=== PATIENT | male | born 1975 | race Caucasian/White ===

== ENCOUNTER → 2016-05-15 | Outpatient (CLI) | payer BC ==
[~2016-05-15] MED LIST: LORA10TA5 PO
--- NOTE | 2016-05-15 10:54 | DIAGNOSTIC IMAGING REPORT ---
ULTRASOUND ABDOMEN COMPLETE CLINICAL HISTORY: Elevated hepatic transaminases. COMPARISON STUDY: Abdominal CT dated 11/16/2012. TECHNIQUE: Real-time, grayscale, and color flow sonography of the abdomen was performed. Images are reviewed in the transverse and longitudinal planes. FINDINGS: Liver: The liver is normal in size and echotexture. There is no intrahepatic biliary ductal dilatation. The main portal vein is patent. Gallbladder: The gallbladder is normal in appearance. No gallstones are identified. There is no gallbladder wall thickening or pericholecystic fluid. A sonographic Tejada's sign is reportedly absent. The common bile duct measures up to 0.4 cm in diameter. Pancreas: Visualized portions of the pancreatic head and body are normal in appearance. The splenic vein is patent. Spleen: The spleen is normal in size and echotexture, measuring 11.3 cm in length. Kidneys: The kidneys are normal in size and echotexture. There is no hydronephrosis. The right kidney measures 12.2 cm in length and the left kidney measures 11.1 cm in length. No shadowing calculi are identified. Abdominal vasculature: Visualized portions of the abdominal aorta are normal in caliber. Ascites: None. IMPRESSION: Unremarkable sonographic assessment of the abdomen. Electronically signed by: Delvis Raymond M.D. 05/15/2016 10:52 AM Dictated Date/Time: 05/15/2016 10:38 AM
== END | disposition home or self-care (01) ==
LOC: C.ULTR 09:52
PROVIDERS: ATTEND Family Medicine
DX: R94.5 Abnormal results of liver function studies (principal)

== ENCOUNTER → 2017-05-08 | Outpatient (CLI) | payer BC ==
[~2017-05-08] MED LIST changes: -LORA10TA5 PO; +LORA10TA6 PO
--- NOTE | 2017-05-08 12:53 | DIAGNOSTIC IMAGING REPORT ---
L FOOT MIN 3 VIEWS ROUTINE CLINICAL HISTORY: Left heel pain. COMPARISON: None FINDINGS: Tarsometatarsal joints are intact. No fracture is identified within the left foot. No osseous lesion is noted. There is mild posterior and plantar calcaneal spurring. IMPRESSION: 1. No acute fracture or dislocation within the left foot. 2. Mild posterior and plantar calcaneal spurring. Electronically signed by: Mino Perea M.D. 05/08/2017 12:51 PM Dictated Date/Time: 05/08/2017 12:47 PM
== END | disposition home or self-care (01) ==
LOC: C.RADBC 12:00
PROVIDERS: ATTEND Family Medicine
DX: M79.675 Pain in left toe(s) (principal); M77.32 Calcaneal spur, left foot